=== PATIENT | female | born 1985 | race African-American/Black ===

== ENCOUNTER 2021-05-10 01:19 | Outpatient (CLI) | payer MEDICARE, MEDICAID, SELFPAY ==
[2021-05-10 12:02] LABS: Source Nasal/Nares
[2021-05-10 15:08] LABS: COVID-19 PCR Negative (Negative)
== END 2021-05-10 01:20 | disposition home or self-care (01) ==
LOC: LBO 01:19
PROVIDERS: PCP Family Medicine; Visit Provider Podiatrist
DX: Z20.822 Contact with and (suspected) exposure to COVID-19 (principal); Z01.818 Encounter for other preprocedural examination
CPT/HCPCS: 87635

== ENCOUNTER 2021-05-12 08:19 | Day surgery (SDC) | payer MEDICARE, MEDICAID, SELFPAY ==
--- NOTE | 2021-05-11 19:36 | HPE_ITS ---
Date of service: 05/11/21 Time of Service: 19:37 History of Present Illness History of Present Illness Chief Complaint: Paronychia/ulcer of right hallux Narrative: 35 YO, female, quadaplegic, with grossly swollen and deformed right great toe x many months. [facility] Medical History Gingival enlargement Hip pain Hypertension Infantile cerebral palsy Lumbago with sciatica Severe obesity Tetraplegic cerebral palsy Surgical History History of cholecystectomy History of surgery Leg and ankle History of total right hip arthroplasty Social History Smoking/Tobacco Use Status: Never Smoking risk assessment performed?: Yes Alcohol Intake: current Substance use type: does not use Meds Allergies and Home Medications Allergies Allergy/AdvReac Type Severity Reaction Status Date / Time No Known Allergies Allergy Unverified 05/10/21 14:21 Home Medications Medication Instructions Recorded Confirmed Type amlodipine 10 mg PO DAILY 05/08/21 05/10/21 History metoprolol succinate 50 mg PO DAILY 05/08/21 05/10/21 History mupirocin 1 applic TOPICAL DAILY 05/08/21 05/10/21 History Exam Narrative Exam Narrative: 35 YO B/F with CP, Quadriplegia who understands when spoken to but responds slowly for surgical debridement of her right great toe. Heads normocephalic eyes PERLLA Hearing is wnl Uvula is mid line Heart has RRR, no murmur noted Lung srivastava were clear Abdomen is obese, soft, BS x 4 Peripheral pulses palpable at the ankle, CFT< 3 sec, No edema the right hallux is grossly swollen without cellulites, the medial and lateral nail folds are enlarged and covering the nail plate. Neurologically, she responds to pain. Impressions: Paronychia right hallux Plan: Rosa is being brought to the OR so the right hallux can be anesthesized, explored and debrided. She and her guardians understand the potential for pain, scarring, infection, additonal surgical procedures pending todays findings. All questions have been answered, informed consent obtained.
[2021-05-12] VITALS (7 sets, daily range): BP systolic 98–175; BP diastolic 73–94; PULSE 106–113; RESP 12–22; TEMP 36.4–36.8; O2SAT 97–100; BMI 28.6
[2021-05-12] MEDS: Lactated Ringers 1,000 ML 80 ML IV (09:09)
[2021-05-12] MEDS: Bupivacaine 0.5% Pres-Free 30 ML VIAL (12:00)
[2021-05-12] MEDS: ceFAZolin 2 GM/50 ML BAG IVPB (12:13)
--- NOTE | 2021-05-12 12:20 | SOFT_PTH ---
PATIENT: Rosa Chang LOC: [facility] U#:[id number] AGE/SX: 35/F ROOM: RE05/12/[address]: Garrick Daniels : 1985 BED: DIS: 05/12/2021 SPEC #: [id number] RECD: 05/12/21 12:57 STATUS: ANTONIETTA REMohsen #: [id number] RANDALL: 05/12/21 12:[address]: Garrick Daniels DEPT: Surgical Specimen RECD BY: Doreen Lopez ENTERED: 05/12/21 12:59 SP TYPE: SOFT OTHR DR: Ozzie Alcaraz Tissues: 1 - SOFT TISSUE [facility] Procedures: GROSS AND MICRO LEVEL 4 SPECIAL STAIN 1 Comments: [id number]
--- NOTE | 2021-05-12 12:27 | W.ANESPRE ---
General Info Date of Service Date Performed: 05/12/21 Height: 5 ft 6 in Weight: 80.6 kg Body Mass Index (BMI): 28.6 Surgical Procedure: Operation Date: 05/12/21 10:10 Proposed Procedures Side Surgeon p I&D (R) HALLUX Right Garrick Daniels DPM Meds Allergies and Home Medications Allergies Allergy/AdvReac Type Severity Reaction Status Date / Time No Known Allergies Allergy Unverified 05/12/21 08:54 Home Medication Medication Instructions Recorded amlodipine 10 mg PO DAILY 05/08/21 metoprolol succinate 50 mg PO DAILY 05/08/21 mupirocin 1 applic TOPICAL DAILY 05/08/21 aspirin 05/12/21 Current Visit Medications: Current Medications Generic Name Dose Route Start Last Admin Trade Name Freq PRN Reason Stop Dose Admin Sodium Chloride 500 mls @ 0 mls/hr 05/12/21 06:00 Saline 500ml Bag IV PRN PRN As Directed Cefazolin Sodium/Dextrose 2 gm in 50 mls @ 100 mls/hr 05/12/21 06:00 Ancef Duplex IVPB PREOP KANU Ringer's Solution 1,000 mls @ 80 mls/hr 05/12/21 06:00 05/12/21 09:09 IV 05/15/21 23:59 80 mls/hr INFUSION KANU Administration Ringer's Solution 1,000 mls @ 30 mls/hr 05/12/21 12:30 IV INFUSION KANU IV Miscellaneous Supplies 1 each 05/12/21 06:00 Iv Access IV DIRECTED KANU IV Miscellaneous Supplies 1 each 05/12/21 06:00 Iv Access IV 05/15/21 23:59 DIRECTED KANU Naloxone HCl 0 mg 05/12/21 12:27 Naloxone 0.4 Mg/Ml Vial IVP PRN PRN Povidone Iodine 0 ml 05/12/21 06:00 Povidone-Iodine Soln. 118 Ml Btl TP DIRECTED KANU Sodium Chloride 0 ml 05/12/21 06:00 Normal Saline Flush 10 Ml Syr IV 05/15/21 23:59 PRN PRN Sodium Chloride 0 ml 05/12/21 06:00 Normal Saline 10 Ml Vial IJ 05/15/21 23:59 DIRECTED PRN Sterile Water 0 ml 05/12/21 06:00 Water,Injection,Sterile 10 Ml Vial IJ 05/15/21 23:59 DIRECTED PRN [facility] Medical History Medical History Gingival enlargement Hip pain Hypertension Infantile cerebral palsy Lumbago with sciatica Severe obesity Tetraplegic cerebral palsy Surgical History Surgical History History of cholecystectomy History of surgery Leg and ankle History of total right hip arthroplasty Tobacco Smoking/Tobacco Use Status: Never Alcohol Alcohol Intake: never Substance Use Substance use: Never Substance use type: does not use Vital Signs and Lab Results Vital Signs Most Recent Vital Signs in EMR: Most Recent Vital Signs Temp Pulse Resp BP Pulse Ox 36.8 C 106 H 22 175/84 H 99 05/12/21 08:46 05/12/21 08:46 05/12/21 08:46 05/12/21 08:46 05/12/21 08:46 Lab Results Blood Type / Crossmatch: No Data to Display Complete Blood Count: No Data to Display Complete Metabolic Panel: No Data to Display Liver Function Panel: No Data to Display Coagulation Panel: No Data to Display Cardiac Panel: No Data to Display Arterial Blood Gas: No Data to Display Venous Blood Gas: No Data to Display Pancreas Panel: No Data to Display Thyroid Panel: No Data to Display Infectious Disease: Coronavirus (COVID-19)(PCR) Negative (Negative) 05/10/21 08:40 05/10/21 Coronavirus 2019 Source Nasal/Nares 05/10/21 08:40 05/10/21 Blood Cultures: No Data to Display Toxicology Panel: No Data to Display Panel: No Data to Display Anesthesia Assessment and Plan Anesthesia History Personal History: No History of Anesthesia Complications Family History: No Family History of Anesthesia Complications Exercise Tolerance Exercise Tolerance: Metabolic Equivalents>4 Pertinent Negatives Pertinent Negatives: No Symptoms of GERD, No Major Cardiovascular Symptoms or Complaints, No Major Pulmonary Symptoms or Complaints and No History of CVA/TIA Cardiac & Pulmonary Exam Cardiac Exam: Normal S1/S2 Heart Sounds Pulmonary Exam: Clear Bilateral Breath Sounds Implantable Cardiac Device Does patient have a Pacemaker or an ICD?: No Airway Exam Known Difficult Airway: No Mallampati Class: Unable to Assess Mouth Opening: Narrow (< 3cm) Thyromental Distance: Less than 3 cm Neck Range of Motion: Limited ROM Neck Circumference: Thick (no appreciable neck) Teeth Condition: Unable to Assess Airway Comments: Morbidly obese presumed decreased FRC ASA Classification ASA Score: ASA 2 Emergency Case?: No NPO Status NPO Status: NPO Clears >2 hours, Solids >8 hours Status Status: Not Per Patient Anesthesia Plan Resuscitation Status: Full Code Anesthesia Technique: General Anesthesia Airway Planned: Natural Airway Monitors Used: Standard Monitors
--- NOTE | 2021-05-12 12:30 | W.PM.DSUDISC ---
Discharge Plan Disposition Patient Disposition: HOME Condition: Good Discharge Details Reason For Visit: I&D paronychia right hallux Attending Provider: Garrick Daniels Primary Care Provider: Ozzie Alcaraz Home Meds and New Rx's Prescriptions: Continued metoprolol succinate 50 mg Tablet Extended Release 24 Hr 50 mg PO DAILY RF: 0 amlodipine 10 mg Tablet 10 mg PO DAILY RF: 0 mupirocin 2 % Ointment 1 applic TOPICAL DAILY RF: 0 aspirin 81 mg Capsule RF: 0 Discharge Instructions Activity:: Activity as Tolerated Remove Dressings/Wound Care:: 24 hours Shower/Bathe:: 24 hours Diet:: As Tolerated Discharge Orders Discharge Orders: Discharge Order (Routine); Ordered 05/12/21 Ordered By: Garrick Daniels DS: Diagnosis Discharge Diagnosis (1) Paronychia due to ingrown nail: Status: Acute
--- NOTE | 2021-05-12 12:32 | ROE_ITS ---
Date of service: 05/12/21 Time of Service: 12:32 Operative Note Operative Note DATE OF PROCEDURE: 05/12/21 PRE-OP DIAGNOSIS: severe ingrown nail with paronychia POST-OP DIAGNOSIS: same PROCEDURE: I&D paronychia with nail avulsion right hallux SURGEON: Garrick Daniels ANESTHESIA TYPE: General LMA/ETT Refer to Anesthesia Record ESTIMATED BLOOD LOSS: 1 PATHOLOGY: other TOURNIQUET TIME: 10 COMPLICATIONS: None Patient was transported to: same day Patient's condition: stable Indications: 35-year-old black female with infantile cerebral palsy and quadriplegia with chronic severe ingrown right hallux nail with paronychia and granulation tissue. Procedure Description: An echo was brought to the operative suite in the supine position right foot was prepped and draped in the usual sterile podiatric fashion. Timeout was performed for safe surgery. Anesthesia was obtained thr ough general endotracheal tube and local block of the right great toe utilizing 9 cc utilizing a 2 cc of 1% lidocaine plain and 7 of 0.5% Marcaine plain. A Esmarch bandage was applied at the base of the great toe for hemostasis. Evaluation of the great toe revealed severely overgrown granulation tissue from the medial nail fold which actually was overriding the entire dorsum of the great toe. The nail plate had normal thickness but was highly crypt ptotic down the medial nail border. Locally infected without cellulites. With a scalpel the hypertrophic medial nail border was excised and this tissue was sent to pathology for evaluation. With double-action bone cutting forcep the medial nail fold was remodeled removing additional pathologic tissue until the nail fold appears more physiologic in nature. This tissue was also sent to pathology. Straight hemostat was then used to release the nail plate from the nail bed and the nail plate was avulsed in its entirety. The proximal nail fold and lateral nail folds looked normal without pathologic activity noted. At this time the nailbed was dressed with Betadine ointment gauze dressings with Coflex. Patient left the OR with vital signs stable vascular status intact. Sharp and sponge counts were correct.
--- NOTE | 2021-05-12 13:39 | W.ANESPOSTOP ---
Postoperative Evaluation Date, Time and Location Date Performed: 05/12/21 Time Performed: 13:39 Patient Location: Day Surgery Unit Vital Signs Most Recent Imported Vital Signs: Most Recent Vital Signs Temp Pulse Resp BP Pulse Ox 36.6 C 109 H 18 136/92 H 100 05/12/21 13:15 05/12/21 13:15 05/12/21 13:15 05/12/21 13:15 05/12/21 13:15 Pain Score Most Recent Pain Score: Most Recent Pain Score Pain Level 2 05/12/21 13:15 Assessment Mental Status: Awake (Alert & Oriented to Patient Baseline) Airway and Respiratory Function: Patent airway with normal (patient baseline) respiratory exam Cardiovascular Function: Hemodynamically Stable Hydration Status: Adequately Hydrated Nausea & Vomiting: No Nausea or Vomiting Pain: Pt. Denies Any Pain Peripheral Nerve Block: Patient did not receive a nerve block
== END 2021-05-12 14:07 | disposition home or self-care (01) ==
PROVIDERS: PCP Family Medicine; Visit Provider Podiatrist
PROC: (CPT 28285; principal; 2021-05-12 10:00)
DX: L60.0 Ingrowing nail (principal); L03.031 Cellulitis of right toe; G80.8 Other cerebral palsy
CPT/HCPCS: 10060; 11730; 88305; 88304; 88312; J0131; J0690; J1100; J1885; J2001; J2250; J2405; J2704